=== PATIENT | female | born 1940 | race Caucasian/White ===

== ENCOUNTER 2016-08-30 10:57 | Emergency (ER) | payer MEDICARE, BC ==
[~2016-08-30 10:57] MED LIST: ADVAIR 250/28 DISKUS IH; ALBUTEROL0.09 MG/A4 IH; BIOTENE ORAL44.3 ML MM; BYSTOLIC5 MG PO; CLINDAMYCIN300 MG PO; COZAAR50 MG PO; FOLIC ACID1 MG PO; IRON325 M1 PO; LEVAQUIN 5500 MG/TA1 PO; LOTRISONE 0.05%1 CRE TP; MAGNESIUM200 MG PO; MASON NATURAL2000 IU PO; METHOTREXATE25 MG/M2 IJ; NATURE'S BLEN2000 IU PO; NEXIUM 40MG40 MG PO; NORCO 325 MG-7.1 TAB PO; OCUVITE1 TA1 PO; PREDNISONE 5MG5 MG PO; PRINIVIL5 MG PO; RECLAST5 MG/100 M IV; SINGULAIR10 MG PO; SYNTHROID0.175 MG PO; TESSALON PERLE200 MG PO; TRAZODONE50 MG PO; TUSSIONEX PENNKI5 ML PO; TYLENOL 500MG500 MG PO; ULTRAM50 MG PO; VITAMIN C500 MG PO; XARELTO10 MG PO; XOPENEX HF0.045 MG/A IH; [UNRECOGNIZED DRUG - OTHER] DE
[2016-08-30] MEDS ORDERED: MAGNESIUM OXID200 MG PO (11:13)
[2016-08-30] MEDS ORDERED: LOPRESSOR 550 MG/TAB PO (11:14)
[2016-08-30] MEDS ORDERED: COLACE100 M1 PO (12:05)
[2016-08-30 12:10] VITALS: BP 160/67
== END 2016-08-30 12:09 | disposition home or self-care (01) ==
LOC: ED 10:57
DX: K59.00 Constipation, unspecified (principal)

== ENCOUNTER → 2016-09-13 | Outpatient (CLI) | payer MEDICARE, BC ==
[~2016-09-13] MED LIST changes: +COLACE100 M1 PO; +LOPRESSOR 550 MG/TAB PO; +MAGNESIUM OXID200 MG PO
[2016-09-13 10:22] VITALS: BP 159/81
== END ==
LOC: AMSURD 10:15
DX: R00.1 Bradycardia, unspecified (principal)

== ENCOUNTER → 2017-01-04 | Outpatient (CLI) | payer MEDICARE, BC ==
[2016-09-13 10:22] VITALS: BP 159/81
== END ==
LOC: LAB 15:15
DX: S81.802A Unspecified open wound, left lower leg, initial encounter (principal); A49.01 Methicillin susceptible Staphylococcus aureus infection, unspecified site

== ENCOUNTER → 2017-11-02 | Outpatient (CLI) | payer MEDICARE, BC ==
[2016-09-13 10:22] VITALS: BP 159/81
== END ==
LOC: MAMMO 09:59
DX: Z12.31 Encounter for screening mammogram for malignant neoplasm of breast (principal)

== ENCOUNTER → 2017-12-13 | Outpatient (CLI) | payer MEDICARE, BC ==
[2016-09-13 10:22] VITALS: BP 159/81
== END ==
LOC: RAD 10:44 → MAMMO 10:45 → RAD 10:45
DX: M81.0 Age-related osteoporosis without current pathological fracture (principal)

== ENCOUNTER → 2018-10-05 | Outpatient (CLI) | payer MEDICARE, BC ==
[2016-09-13 10:22] VITALS: BP 159/81
== END ==
LOC: RAD 08:02
DX: M79.661 Pain in right lower leg (principal)

== ENCOUNTER → 2019-05-16 | Outpatient (CLI) | payer MEDICARE, BC ==
[2016-09-13 10:22] VITALS: BP 159/81
== END ==
LOC: MAMMO 11:30
DX: Z12.31 Encounter for screening mammogram for malignant neoplasm of breast (principal)

== ENCOUNTER → 2019-05-29 | Outpatient (CLI) | payer MEDICARE, BC ==
[2016-09-13 10:22] VITALS: BP 159/81
[2019-05-29 12:49] LABS: HEMATOCRIT 41.5 % (37.0-47.0); HEMOGLOBIN 13.7 g/dL (12.5-16.0); MEAN CELL VOLUME 96 fl (78-100); MEAN CORPUSCULAR HEMOGLOBIN 32 pg (27-31); MEAN CORPUSCULAR HGB CONC 33 g/dL (33-37); MEAN PLATELET VOLUME 9.2 fl (7.4-10.4); PLATELET COUNT 231 K/mm3 (130-400); RED BLOOD COUNT 4.33 M/mm3 (4.10-5.30); RED CELL DISTRIBUTION WIDTH 15.6 % (11.5-14.5); WHITE BLOOD COUNT 5.4 K/mm3 (4.8-10.8)
[2019-05-29 12:56] LABS: POTASSIUM 4.3 mmol/L (3.5-5.1)
[2019-05-29 12:57] LABS: CALCIUM 9.5 mg/dL (8.3-10.5)
[2019-05-29 12:59] LABS: TOTAL PROTEIN 7.5 g/dL (6.2-8.1)
[2019-05-29 13:01] LABS: TOTAL BILIRUBIN 0.6 mg/dL (0.2-1.2)
[2019-05-29 13:16] LABS: LYMPHOCYTE 30 % (20-51); NEUTROPHILS 54 % (42-75)
[2019-05-29 13:17] LABS: MONOCYTE 12 % (3-10)
[2019-05-29 13:54] LABS: ERYTHROCYTE SEDIMENTATION RATE 14 mm/hr (0-30)
== END ==
LOC: RAD 12:05
PROVIDERS: Internal Medicine
DX: Z12.11 Encounter for screening for malignant neoplasm of colon (principal); M17.12 Unilateral primary osteoarthritis, left knee; I10 Essential (primary) hypertension; D64.9 Anemia, unspecified; E03.9 Hypothyroidism, unspecified; M81.0 Age-related osteoporosis without current pathological fracture; M06.9 Rheumatoid arthritis, unspecified

== ENCOUNTER → 2019-06-21 | Outpatient (CLI) | payer MEDICARE, BC ==
[2016-09-13 10:22] VITALS: BP 159/81
== END ==
LOC: LAB 14:15
DX: Z12.11 Encounter for screening for malignant neoplasm of colon (principal); M06.9 Rheumatoid arthritis, unspecified; I10 Essential (primary) hypertension; E03.9 Hypothyroidism, unspecified

== ENCOUNTER → 2019-10-16 | Outpatient (CLI) | payer MEDICARE, BC ==
[2016-09-13 10:22] VITALS: BP 159/81
[2019-10-16 10:26] LABS: ALBUMIN 3.6 g/dL (3.4-4.8)
[2019-10-16 10:27] LABS: CALCIUM 9.4 mg/dL (8.3-10.5)
[2019-10-16 10:28] LABS: TOTAL PROTEIN 6.5 g/dL (6.2-8.1)
[2019-10-16 10:30] LABS: TOTAL BILIRUBIN 0.5 mg/dL (0.2-1.2)
[2019-10-16 11:27] LABS: HEMATOCRIT 43.3 % (37.0-47.0); HEMOGLOBIN 13.9 g/dL (12.5-16.0); MEAN CELL VOLUME 98 fl (78-100); MEAN CORPUSCULAR HEMOGLOBIN 31 pg (27-31); MEAN CORPUSCULAR HGB CONC 32 g/dL (33-37); MEAN PLATELET VOLUME 9.6 fl (7.4-10.4); PLATELET COUNT 249 K/mm3 (130-400); RED BLOOD COUNT 4.44 M/mm3 (4.10-5.30); RED CELL DISTRIBUTION WIDTH 15.3 % (11.5-14.5); WHITE BLOOD COUNT 11.8 K/mm3 (4.8-10.8)
[2019-10-16 12:11] LABS: LYMPHOCYTE 5 % (20-51); MONOCYTE 4 % (3-10); NEUTROPHILS 90 % (42-75)
[2019-10-16 12:12] LABS: ERYTHROCYTE SEDIMENTATION RATE 14 mm/hr (0-30)
== END ==
LOC: LAB 10:04
PROVIDERS: Internal Medicine
DX: R05 Cough (principal); R06.02 Shortness of breath; Z98.890 Other specified postprocedural states

== ENCOUNTER 2020-12-22 13:47 | Outpatient (RCR) | payer MEDICARE, BC ==
[2016-09-13 10:22] VITALS: BP 159/81
== END 2021-03-22 ==
LOC: PT
DX: M70.61 Trochanteric bursitis, right hip (principal)

== ENCOUNTER → 2021-02-16 | Outpatient (CLI) | payer MEDICARE, BC ==
[2021-02-16 15:34] LABS: ALBUMIN 3.7 g/dL (3.4-4.8); POTASSIUM 4.5 mmol/L (3.5-5.1)
[2021-02-16 15:35] LABS: CALCIUM 9.4 mg/dL (8.3-10.5)
[2021-02-16 15:37] LABS: TOTAL PROTEIN 6.6 g/dL (6.2-8.1)
[2021-02-16 15:38] LABS: TOTAL BILIRUBIN 0.5 mg/dL (0.2-1.2)
[2021-02-16 16:51] LABS: ERYTHROCYTE SEDIMENTATION RATE 20 mm/hr (0-30)
[2021-02-16 16:53] LABS: BASO # 0.06 (0.02-0.10); EOS # 0.09 (0.04-0.40); EOS % 1.2 % (1.0-5.0); HEMATOCRIT 40.3 % (37.0-47.0); HEMOGLOBIN 13.5 g/dL (12.5-16.0); LYMPH# 1.41 (1.50-4.00); MEAN CELL VOLUME 100 fl (78-100); MEAN CORPUSCULAR HEMOGLOBIN 34 pg (27-31); MEAN CORPUSCULAR HGB CONC 34 g/dL (33-37); MEAN PLATELET VOLUME 9.2 fl (7.4-10.4); MONO # 0.98 (0.20-0.80); NEU # 4.83 (1.40-6.50); PLATELET COUNT 264 K/mm3 (130-400); RED BLOOD COUNT 4.03 M/mm3 (4.10-5.30); RED CELL DISTRIBUTION WIDTH 14.5 % (11.5-14.5); WHITE BLOOD COUNT 7.4 K/mm3 (4.8-10.8)
[2021-02-17 13:44] LABS: ANA SCREEN with REFLEX Negative (Negative)
== END ==
LOC: LAB 14:54
PROVIDERS: Nurse Practitioner
DX: R22.31 Localized swelling, mass and lump, right upper limb (principal)

== ENCOUNTER → 2021-04-22 | Outpatient (CLI) | payer MEDICARE, BC ==
[2021-04-22 16:01] LABS: ALBUMIN 3.6 g/dL (3.4-4.8); POTASSIUM 4.8 mmol/L (3.5-5.1)
[2021-04-22 16:02] LABS: CALCIUM 9.4 mg/dL (8.3-10.5)
[2021-04-22 16:04] LABS: TOTAL PROTEIN 6.1 g/dL (6.2-8.1)
[2021-04-22 16:06] LABS: TOTAL BILIRUBIN 0.5 mg/dL (0.2-1.2)
== END ==
LOC: LAB 15:36
PROVIDERS: Internal Medicine
DX: R73.03 Prediabetes (principal)

== ENCOUNTER → 2021-05-27 | Outpatient (CLI) | payer MEDICARE, BC | LOC: MAMMO 10:00 | DX: M81.0 Age-related osteoporosis without current pathological fracture (principal); Z12.31 Encounter for screening mammogram for malignant neoplasm of breast ==

== ENCOUNTER → 2021-05-27 | Outpatient (CLI) | payer MEDICARE, BC | LOC: RAD 10:06 | DX: Z13.820 Encounter for screening for osteoporosis (principal); M81.0 Age-related osteoporosis without current pathological fracture ==

== ENCOUNTER → 2021-06-18 | Outpatient (CLI) | payer MEDICARE, BC ==
[2021-06-18 12:44] LABS: BASO # 0.04 K/mm3 (0.02-0.10); EOS # 0.05 K/mm3 (0.04-0.40); EOS % 0.5 % (1.0-5.0); HEMATOCRIT 43.4 % (37.0-47.0); LYMPH# 0.97 K/mm3 (1.50-4.00); MEAN CELL VOLUME 103 fl (78-100); MEAN CORPUSCULAR HEMOGLOBIN 33 pg (27-31); MEAN CORPUSCULAR HGB CONC 32 g/dL (33-37); MEAN PLATELET VOLUME 8.8 fl (7.4-10.4); MONO # 0.73 K/mm3 (0.20-0.80); NEU # 8.87 K/mm3 (1.40-6.50); PLATELET COUNT 194 K/mm3 (130-400); RED BLOOD COUNT 4.21 M/mm3 (4.10-5.30); RED CELL DISTRIBUTION WIDTH 15.4 % (11.5-14.5); WHITE BLOOD COUNT 10.7 K/mm3 (4.8-10.8)
[2021-06-18 12:53] LABS: ALBUMIN 3.9 g/dL (3.4-4.8)
[2021-06-18 12:56] LABS: TOTAL PROTEIN 6.5 g/dL (6.2-8.1)
[2021-06-18 12:58] LABS: TOTAL BILIRUBIN 0.8 mg/dL (0.2-1.2)
== END ==
LOC: LAB 12:28
PROVIDERS: Internal Medicine
DX: M47.814 Spondylosis without myelopathy or radiculopathy, thoracic region (principal); M43.17 Spondylolisthesis, lumbosacral region; M51.36 Other intervertebral disc degeneration, lumbar region; M41.86 Other forms of scoliosis, lumbar region; R07.9 Chest pain, unspecified; Z98.890 Other specified postprocedural states; M81.0 Age-related osteoporosis without current pathological fracture; E03.4 Atrophy of thyroid (acquired)

== ENCOUNTER → 2021-06-19 | Outpatient (CLI) | payer MEDICARE, BC | LOC: RAD 12:39 | DX: J98.11 Atelectasis (principal); R79.1 Abnormal coagulation profile; K80.20 Calculus of gallbladder without cholecystitis without obstruction | CPT/HCPCS: Q9967 ==

== ENCOUNTER → 2021-07-03 | Outpatient (CLI) | payer MEDICARE, BC | END | disposition still patient (30) | LOC: CARDLAB 08:15 → CARDREHAB 10:46 | DX: R06.00 Dyspnea, unspecified (principal) | CPT/HCPCS: A9500 ==

== ENCOUNTER → 2021-08-20 | Outpatient (CLI) | payer MEDICARE, BC ==
[2021-08-20 10:35] LABS: BASO # 0.03 K/mm3 (0.02-0.10); EOS # 0.12 K/mm3 (0.04-0.40); EOS % 2.4 % (1.0-5.0); HEMATOCRIT 41.4 % (37.0-47.0); HEMOGLOBIN 13.2 g/dL (12.5-16.0); LYMPH# 1.22 K/mm3 (1.50-4.00); MEAN CELL VOLUME 105 fl (78-100); MEAN CORPUSCULAR HEMOGLOBIN 33 pg (27-31); MEAN CORPUSCULAR HGB CONC 32 g/dL (33-37); MEAN PLATELET VOLUME 9.3 fl (7.4-10.4); MONO # 0.78 K/mm3 (0.20-0.80); NEU # 2.79 K/mm3 (1.40-6.50); PLATELET COUNT 224 K/mm3 (130-400); RED BLOOD COUNT 3.95 M/mm3 (4.10-5.30); RED CELL DISTRIBUTION WIDTH 15.4 % (11.5-14.5)
== END ==
LOC: LAB 10:20
PROVIDERS: Family Medicine
DX: I87.2 Venous insufficiency (chronic) (peripheral) (principal); L03.119 Cellulitis of unspecified part of limb

== ENCOUNTER → 2021-09-01 | Outpatient (CLI) | payer MEDICARE, BC ==
[~2021-09-01] VITALS: Ht 167.6 cm; Wt 120.9 kg
[~2021-09-01] MED LIST changes: +ALDACTONE25 M1 PO; +AZELASTINE137 MCG/A1 NS; +DESYREL 100MG100 MG PO; +DILTIAZEM 24HR120 M2 PO; +FLUTICASONE-SA1 EAC4 IH; +LEVOTHYROXINE175 MCG PO; +METHOTREXA25 MG/1 ML IJ; +NATURAL IRON65 MG PO; +NATURE'S BLEND1 TA6 PO; +PROAIR HFA0.09 MG/AC IH; +SINGULAIR 110 MG/TAB PO; +TYLENOL 325MG325 MG PO
[2021-09-01 17:39] VITALS: BP 158/97
[2021-09-01 17:49] VITALS: BP 161/110
[2021-09-01 18:01] VITALS: BP 173/96
[2021-09-01 18:15] VITALS: BP 180/100
[2021-09-01 18:30] VITALS: BP 160/93
[2021-09-01 18:45] VITALS: BP 169/104
== END ==
LOC: LAB 15:45
DX: U07.1 COVID-19 (principal); E66.9 Obesity, unspecified; N18.9 Chronic kidney disease, unspecified; I25.10 Atherosclerotic heart disease of native coronary artery without angina pectoris
CPT/HCPCS: M0247; Q0247

== ENCOUNTER → 2021-10-09 | Outpatient (CLI) | payer MEDICARE, BC ==
[2021-10-09 12:41] LABS: POTASSIUM 4.5 mmol/L (3.5-5.1)
[2021-10-09 12:42] LABS: CALCIUM 9.6 mg/dL (8.3-10.5)
== END ==
LOC: LAB 11:56
PROVIDERS: Internal Medicine Pulmonary Disease
DX: R06.00 Dyspnea, unspecified (principal); R06.02 Shortness of breath

== ENCOUNTER 2023-04-12 11:48 | Emergency (ER) | payer MEDICARE, BC ==
[~2023-04-12] VITALS: Ht 167.6 cm; Wt 110.0 kg
[2023-04-12 12:11] LABS: BASO # 0.03 K/mm3 (0.02-0.10); EOS # 0.11 K/mm3 (0.04-0.40); EOS % 1.4 % (1.0-5.0); HEMATOCRIT 41.8 % (37.0-47.0); HEMOGLOBIN 13.6 g/dL (12.5-16.0); LYMPH# 1.59 K/mm3 (1.50-4.00); MEAN CELL VOLUME 101 fl (78-100); MEAN CORPUSCULAR HEMOGLOBIN 33 pg (27-31); MEAN CORPUSCULAR HGB CONC 33 g/dL (33-37); MEAN PLATELET VOLUME 8.6 fl (7.4-10.4); MONO # 0.87 K/mm3 (0.20-0.80); NEU # 5.22 K/mm3 (1.40-6.50); PLATELET COUNT 247 K/mm3 (130-400); RED BLOOD COUNT 4.15 M/mm3 (4.10-5.30); RED CELL DISTRIBUTION WIDTH 15.1 % (11.5-14.5); WHITE BLOOD COUNT 7.9 K/mm3 (4.8-10.8)
[2023-04-12 12:20] LABS: ALBUMIN 3.9 g/dL (3.4-4.8); POTASSIUM 3.9 mmol/L (3.5-5.1); SODIUM 139 mmol/L (136-145)
[2023-04-12 12:21] LABS: CALCIUM 9.4 mg/dL (8.3-10.5)
[2023-04-12 12:22] LABS: GLUCOSE 81 mg/dL (65-105); TOTAL PROTEIN 7.3 g/dL (6.2-8.1)
[2023-04-12 12:23] LABS: CARBON DIOXIDE 23 mmol/L (23-31)
[2023-04-12 12:24] LABS: TOTAL BILIRUBIN 0.4 mg/dL (0.2-1.2)
[2023-04-12 12:28] LABS: AST-SGOT 25 U/L (5-34)
[2023-04-12 12:29] LABS: ALT/SGPT 23 U/L (0-55)
[2023-04-12 12:53] LABS: TROPONIN-I < 0.030 ng/mL (<0.030)
[2023-04-12 13:45] VITALS: BP 164/84
== END 2023-04-12 13:46 | disposition short-term general hospital (02) ==
LOC: ED 11:48
PROVIDERS: Physician Assistant
DX: R07.89 Other chest pain (principal); R79.89 Other specified abnormal findings of blood chemistry

== ENCOUNTER → 2023-06-30 | Outpatient (CLI) | payer MEDICARE, BC | LOC: RAD 10:30 → MAMMO 10:30 → RAD 10:38 | DX: M81.0 Age-related osteoporosis without current pathological fracture (principal) ==

== ENCOUNTER → 2023-08-18 | Outpatient (CLI) | payer MEDICARE, BC ==
[2023-08-18 11:29] LABS: BASO # 0.03 K/mm3 (0.02-0.10); EOS # 0.13 K/mm3 (0.04-0.40); EOS % 1.4 % (1.0-5.0); HEMATOCRIT 39.5 % (37.0-47.0); HEMOGLOBIN 12.8 g/dL (12.5-16.0); LYMPH# 0.93 K/mm3 (1.50-4.00); MEAN CELL VOLUME 102 fl (78-100); MEAN CORPUSCULAR HEMOGLOBIN 33 pg (27-31); MEAN CORPUSCULAR HGB CONC 32 g/dL (33-37); MEAN PLATELET VOLUME 8.2 fl (7.4-10.4); MONO # 0.67 K/mm3 (0.20-0.80); PLATELET COUNT 290 K/mm3 (130-400); RED BLOOD COUNT 3.89 M/mm3 (4.10-5.30); RED CELL DISTRIBUTION WIDTH 15.4 % (11.5-14.5)
[2023-08-18 11:44] LABS: CALCIUM 9.8 mg/dL (8.3-10.5)
[2023-08-18 11:45] LABS: TOTAL PROTEIN 7.3 g/dL (6.2-8.1)
[2023-08-18 11:47] LABS: TOTAL BILIRUBIN 0.5 mg/dL (0.2-1.2)
[2023-08-18 11:52] LABS: MAGNESIUM 2.18 mg/dL (1.60-2.60)
[2023-08-21 06:08] LABS: ANTI-CYC CITRULLINATED PEPT AB 189 units (0-19)
== END ==
LOC: LAB 11:01
PROVIDERS: Internal Medicine
DX: M06.9 Rheumatoid arthritis, unspecified (principal); M81.0 Age-related osteoporosis without current pathological fracture; E03.4 Atrophy of thyroid (acquired); I10 Essential (primary) hypertension

== ENCOUNTER 2023-09-28 15:10 | Inpatient (IN) | payer MEDICARE, BC ==
[~2023-09-28] VITALS: Ht 198.1 cm; Wt 111.1 kg
[2023-09-28 16:01] VITALS: BP 166/109
[2023-09-28] MEDS ORDERED: CYCLOBENZ5 MG PO (16:40)
[2023-09-28] MEDS ORDERED: ASPERCREME1 EACH TP (16:44)
[2023-09-28] MEDS ORDERED: ROXICODONE 55 MG/TAB PO (16:46)
[2023-09-28] MEDS ORDERED: MIRALAX17 GM PO (16:47)
[2023-09-28] MEDS ORDERED: RT ADVAIR HFA 2312 G IH (16:49)
[2023-09-28] MEDS ORDERED: CETIRIZINE HCL10 MG PO (16:51)
[2023-09-28] MEDS ORDERED: BENADRYL PO (16:54)
[2023-09-28] MEDS ORDERED: ISOSORBIDE30 MG PO (16:57)
[2023-09-28] MEDS ORDERED: NIZORAL CREAM15 GM TP (17:01)
[2023-09-28] MEDS ORDERED: ORENCIA50 MG/0.4 (17:06)
[2023-09-28] MEDS ORDERED: PANTOPRAZOLE SO40 MG PO (17:09)
[2023-09-28] MEDS ORDERED: ALDACTONE50 M1 PO (17:12)
[2023-09-28] MEDS ORDERED: VITAMIN D350 MCG PO (17:16)
[2023-09-28] MEDS ORDERED: [UNRECOGNIZED DRUG - OTHER] TP (17:20)
[2023-09-28 17:33] LABS: URINE APPEARANCE CLOUDY (CLEAR); URINE COLOR YELLOW (YELLOW); URINE PROTEIN(semi-quant) 2+ (NEGATIVE)
[2023-09-28 17:34] LABS: URINE BILIRUBIN NEGATIVE (NEGATIVE); URINE BLOOD 2+ (NEGATIVE); URINE GLUCOSE NEGATIVE (NEGATIVE); URINE KETONE TRACE (NEGATIVE); URINE LEUKOCYTE ESTERASE 3+ (NEGATIVE); URINE NITRATE POSITIVE (NEGATIVE); URINE WBC >50 /hpf (0-3)
[2023-09-28 17:42] LABS: ALBUMIN 3.8 g/dL (3.4-4.8)
[2023-09-28 17:44] LABS: CALCIUM 10.1 mg/dL (8.3-10.5)
[2023-09-28 17:45] LABS: TOTAL PROTEIN 7.8 g/dL (6.2-8.1)
[2023-09-28 17:47] LABS: TOTAL BILIRUBIN 0.8 mg/dL (0.2-1.2)
[2023-09-28 18:09] LABS: BASO # 0.02 K/mm3 (0.02-0.10); EOS # 0.11 K/mm3 (0.04-0.40); EOS % 0.8 % (1.0-5.0); HEMATOCRIT 39.8 % (37.0-47.0); LYMPH# 1.34 K/mm3 (1.50-4.00); MEAN CELL VOLUME 98 fl (78-100); MEAN CORPUSCULAR HEMOGLOBIN 32 pg (27-31); MEAN CORPUSCULAR HGB CONC 33 g/dL (33-37); MEAN PLATELET VOLUME 9.5 fl (7.4-10.4); MONO # 1.17 K/mm3 (0.20-0.80); NEU # 10.38 K/mm3 (1.40-6.50); PLATELET COUNT 289 K/mm3 (130-400); RED BLOOD COUNT 4.05 M/mm3 (4.10-5.30); RED CELL DISTRIBUTION WIDTH 15.3 % (11.5-14.5); WHITE BLOOD COUNT 13.1 K/mm3 (4.8-10.8)
[2023-09-28] MEDS ORDERED: oxyCODONE 5 MG TAB PO PRN (18:30)
[2023-09-28] MEDS ORDERED: Albuterol 90 MCG/PUFF MDI IH PRN (19:00)
[2023-09-28] MEDS ORDERED: diphenhydrAMINE 25 MG CAP PO PRN (19:00)
[2023-09-28] MEDS ORDERED: Spironolactone 25 MG TAB PO SCH (19:00)
[2023-09-28] MEDS ORDERED: Acetaminophen 325 MG TAB PO PRN (19:15)
[2023-09-28] MEDS ORDERED: Montelukast 10 MG TAB PO SCH (21:00)
[2023-09-28] MEDS ORDERED: traZODone 50 MG TAB PO SCH (21:00)
[2023-09-28] MEDS ORDERED: Cyclobenzaprine 10 MG TAB PO SCH (21:00)
[2023-09-28] MEDS ORDERED: UREA TOP SCH (21:00)
[2023-09-28] MEDS ORDERED: Formoterol 20 MCG,Budesonide 0.5 MG IH SCH (21:00)
[2023-09-29 05:44] VITALS: BP 162/85
[2023-09-29] MEDS ORDERED: Nitrofurantoin (Mono/Macro) 100 MG CAPSULE PO SCH (08:48)
[2023-09-29] MEDS ORDERED: dilTIAZem CD 120 MG CAP PO SCH (09:00)
[2023-09-29] MEDS ORDERED: Multivitamin TAB PO SCH (09:00)
[2023-09-29] MEDS ORDERED: Spironolactone 25 MG TAB PO SCH (09:00)
[2023-09-29] MEDS ORDERED: Ferrous Sulfate 325 MG TAB PO SCH (09:00)
[2023-09-29] MEDS ORDERED: Isosorbide Mononitrate ER (24-HR) 30 MG TAB PO SCH (09:00)
[2023-09-29] MEDS ORDERED: Polyethylene Glycol 3350 Powder 17 GM PACKET PO SCH (09:00)
[2023-09-29] MEDS ORDERED: Lidocaine 4% Topical Patch TP SCH (09:00)
[2023-09-29] MEDS ORDERED: Folic Acid 1 MG TAB PO SCH (09:00)
[2023-09-29] MEDS ORDERED: Magnesium Oxide 400 MG TAB PO SCH (09:00)
[2023-09-29] MEDS ORDERED: Cetirizine 10 MG TAB PO SCH (09:00)
[2023-09-29 15:42] VITALS: BP 126/77
[2023-09-29] MEDS ORDERED: Miconazole 2% Topical Powder BOTTLE TP SCH (15:42)
[2023-09-30 05:42] VITALS: BP 164/78
[2023-09-30] MEDS ORDERED: Acetaminophen 325 MG TAB PO PRN (18:00)
[2023-09-30 18:22] VITALS: BP 93/59
[2023-10-01 05:56] VITALS: BP 127/73
[2023-10-01 17:49] VITALS: BP 136/83
[2023-10-02 05:47] VITALS: BP 124/76
[2023-10-02 17:03] VITALS: BP 141/81
[2023-10-03 06:10] VITALS: BP 145/78
[2023-10-03 09:36] VITALS: BP 149/82
[2023-10-03 17:12] VITALS: BP 115/48
[2023-10-03 17:14] VITALS: BP 115/76
[2023-10-04 05:11] VITALS: BP 153/82
[2023-10-04 16:22] VITALS: BP 116/72
[2023-10-05 05:37] VITALS: BP 129/75
[2023-10-05 18:15] VITALS: BP 128/79
[2023-10-06 05:43] VITALS: BP 136/79
[2023-10-06 17:30] VITALS: BP 138/83
[2023-10-07 05:28] VITALS: BP 141/73
[2023-10-07 17:08] VITALS: BP 127/83
[2023-10-08 05:56] VITALS: BP 117/72
[2023-10-08 18:27] VITALS: BP 116/67
[2023-10-09 05:26] VITALS: BP 148/73
[2023-10-09 15:48] VITALS: BP 136/82
[2023-10-10 06:01] VITALS: BP 146/85; BP_SYST 85
[2023-10-10 17:40] VITALS: BP 151/84
[2023-10-11 06:05] VITALS: BP 139/80
[2023-10-11 16:56] VITALS: BP 136/81
[2023-10-12 06:07] VITALS: BP 136/97
[2023-10-12 06:07] LABS: BASO # 0.04 K/mm3 (0.02-0.10); EOS # 0.13 K/mm3 (0.04-0.40); EOS % 1.9 % (1.0-5.0); HEMATOCRIT 33.6 % (37.0-47.0); HEMOGLOBIN 10.9 g/dL (12.5-16.0); LYMPH# 1.47 K/mm3 (1.50-4.00); MEAN CELL VOLUME 100 fl (78-100); MEAN CORPUSCULAR HEMOGLOBIN 32 pg (27-31); MEAN CORPUSCULAR HGB CONC 32 g/dL (33-37); MEAN PLATELET VOLUME 7.8 fl (7.4-10.4); MONO # 0.61 K/mm3 (0.20-0.80); NEU # 4.52 K/mm3 (1.40-6.50); PLATELET COUNT 297 K/mm3 (130-400); RED BLOOD COUNT 3.36 M/mm3 (4.10-5.30); RED CELL DISTRIBUTION WIDTH 15.4 % (11.5-14.5); WHITE BLOOD COUNT 6.8 K/mm3 (4.8-10.8)
[2023-10-12 06:19] LABS: ALBUMIN 3.2 g/dL (3.4-4.8)
[2023-10-12 06:21] LABS: CALCIUM 9.1 mg/dL (8.3-10.5)
[2023-10-12 06:22] LABS: TOTAL PROTEIN 6.2 g/dL (6.2-8.1)
[2023-10-12 06:24] LABS: TOTAL BILIRUBIN 0.3 mg/dL (0.2-1.2)
[2023-10-12] MEDS ORDERED: ROXICODONE 55 MG/TAB PO (10:57)
== END 2023-10-12 11:17 | disposition home health service (06) | DRG 560 ==
LOC: MED/SURG 15:10
PROVIDERS: Family Medicine; ADMIT Nurse Practitioner
DX: S22.20XD Unspecified fracture of sternum, subsequent encounter for fracture with routine healing (principal); N39.0 Urinary tract infection, site not specified; N18.9 Chronic kidney disease, unspecified; I12.9 Hypertensive chronic kidney disease with stage 1 through stage 4 chronic kidney disease, or unspecified chronic kidney disease; M79.7 Fibromyalgia; E03.9 Hypothyroidism, unspecified; J44.9 Chronic obstructive pulmonary disease, unspecified; K21.9 Gastro-esophageal reflux disease without esophagitis; M19.90 Unspecified osteoarthritis, unspecified site; E78.2 Mixed hyperlipidemia; M06.9 Rheumatoid arthritis, unspecified; G47.30 Sleep apnea, unspecified; J30.9 Allergic rhinitis, unspecified; W18.30XD Fall on same level, unspecified, subsequent encounter; Z79.891 Long term (current) use of opiate analgesic; Z79.890 Hormone replacement therapy; Z96.651 Presence of right artificial knee joint; Z87.891 Personal history of nicotine dependence; Z88.0 Allergy status to penicillin; Z88.2 Allergy status to sulfonamides; Z88.8 Allergy status to other drugs, medicaments and biological substances
CPT/HCPCS: J8610

== ENCOUNTER → 2024-01-23 | Outpatient (CLI) | payer MEDICARE, BC ==
[~2024-01-23] MED LIST changes: +ALDACTONE50 M1 PO; +ASPERCREME1 EACH TP; +BENADRYL PO; +CETIRIZINE HCL10 MG PO; +CYCLOBENZ5 MG PO; +ISOSORBIDE30 MG PO; +MIRALAX17 GM PO; +NIZORAL CREAM15 GM TP; +ORENCIA50 MG/0.4; +PANTOPRAZOLE SO40 MG PO; +ROXICODONE 55 MG/TAB PO; +RT ADVAIR HFA 2312 G IH; +VITAMIN D350 MCG PO; +[UNRECOGNIZED DRUG - OTHER] TP
[2024-01-23 10:37] LABS: ALBUMIN 3.7 g/dL (3.4-4.8)
[2024-01-23 10:39] LABS: BASO # 0.03 K/mm3 (0.02-0.10); CALCIUM 9.3 mg/dL (8.3-10.5); EOS # 0.31 K/mm3 (0.04-0.40); EOS % 4.5 % (1.0-5.0); HEMATOCRIT 39.7 % (37.0-47.0); HEMOGLOBIN 12.7 g/dL (12.5-16.0); LYMPH# 1.27 K/mm3 (1.50-4.00); MEAN CELL VOLUME 102 fl (78-100); MEAN CORPUSCULAR HEMOGLOBIN 33 pg (27-31); MEAN CORPUSCULAR HGB CONC 32 g/dL (33-37); MEAN PLATELET VOLUME 8.4 fl (7.4-10.4); NEU # 4.65 K/mm3 (1.40-6.50); PLATELET COUNT 257 K/mm3 (130-400); RED BLOOD COUNT 3.91 M/mm3 (4.10-5.30); RED CELL DISTRIBUTION WIDTH 15.9 % (11.5-14.5); WHITE BLOOD COUNT 6.9 K/mm3 (4.8-10.8)
[2024-01-23 10:40] LABS: TOTAL PROTEIN 6.7 g/dL (6.2-8.1)
[2024-01-23 10:42] LABS: TOTAL BILIRUBIN 0.6 mg/dL (0.2-1.2)
[2024-01-23 10:47] LABS: MAGNESIUM 1.98 mg/dL (1.60-2.60)
[2024-01-23 11:25] LABS: URINE APPEARANCE CLOUDY (CLEAR); URINE BILIRUBIN NEGATIVE (NEGATIVE); URINE BLOOD NEGATIVE (NEGATIVE); URINE COLOR YELLOW (YELLOW); URINE GLUCOSE NEGATIVE (NEGATIVE); URINE KETONE NEGATIVE (NEGATIVE); URINE LEUKOCYTE ESTERASE 2+ (NEGATIVE); URINE NITRATE POSITIVE (NEGATIVE); URINE PROTEIN(semi-quant) NEGATIVE (NEGATIVE)
[2024-01-23 11:26] LABS: URINE WBC >50 /hpf (0-3)
== END ==
LOC: LAB 10:12
PROVIDERS: Internal Medicine
DX: Z12.11 Encounter for screening for malignant neoplasm of colon (principal); E03.4 Atrophy of thyroid (acquired); I12.9 Hypertensive chronic kidney disease with stage 1 through stage 4 chronic kidney disease, or unspecified chronic kidney disease; N18.30 Chronic kidney disease, stage 3 unspecified; M06.9 Rheumatoid arthritis, unspecified; K90.9 Intestinal malabsorption, unspecified; E78.2 Mixed hyperlipidemia; R73.9 Hyperglycemia, unspecified

== ENCOUNTER → 2024-01-27 | Outpatient (CLI) | payer MEDICARE, BC | LOC: RAD 11:23 | DX: M25.551 Pain in right hip (principal) ==

== ENCOUNTER → 2024-02-13 | Outpatient (CLI) | payer MEDICARE, BC | LOC: MAMMO 14:30 | DX: Z12.31 Encounter for screening mammogram for malignant neoplasm of breast (principal) ==

== ENCOUNTER → 2024-04-13 | Outpatient (CLI) | payer MEDICARE, BC | LOC: RAD 11:59 | DX: R06.00 Dyspnea, unspecified (principal) ==

== ENCOUNTER → 2024-07-12 | Outpatient (CLI) | payer MEDICARE, BC ==
[2024-07-12 15:23] LABS: BASO # 0.04 K/mm3 (0.02-0.10); EOS # 0.27 K/mm3 (0.04-0.40); EOS % 2.9 % (1.0-5.0); HEMATOCRIT 40.1 % (37.0-47.0); HEMOGLOBIN 12.9 g/dL (12.5-16.0); MEAN CELL VOLUME 101 fl (78-100); MEAN CORPUSCULAR HEMOGLOBIN 33 pg (27-31); MEAN CORPUSCULAR HGB CONC 32 g/dL (33-37); MEAN PLATELET VOLUME 8.4 fl (7.4-10.4); MONO # 0.85 K/mm3 (0.20-0.80); NEU # 6.73 K/mm3 (1.40-6.50); PLATELET COUNT 272 K/mm3 (130-400); RED BLOOD COUNT 3.97 M/mm3 (4.10-5.30); RED CELL DISTRIBUTION WIDTH 15.7 % (11.5-14.5); WHITE BLOOD COUNT 9.2 K/mm3 (4.8-10.8)
[2024-07-12 15:30] LABS: ALBUMIN 3.9 g/dL (3.4-4.8)
[2024-07-12 15:31] LABS: CALCIUM 9.7 mg/dL (8.3-10.5)
[2024-07-12 15:33] LABS: TOTAL PROTEIN 7.1 g/dL (6.2-8.1)
[2024-07-12 15:34] LABS: TOTAL BILIRUBIN 0.4 mg/dL (0.2-1.2)
[2024-07-12 15:39] LABS: MAGNESIUM 2.15 mg/dL (1.60-2.60)
== END ==
LOC: LAB 15:03
PROVIDERS: Internal Medicine
DX: E03.4 Atrophy of thyroid (acquired) (principal); I10 Essential (primary) hypertension; K90.9 Intestinal malabsorption, unspecified

== ENCOUNTER 2024-08-10 14:53 | Emergency (ER) | payer MEDICARE, BC ==
[~2024-08-10] VITALS: Ht 167.6 cm; Wt 103.6 kg
[2024-08-10] MEDS ORDERED: DULOXETINE30 MG PO (15:01)
[2024-08-10] MEDS ORDERED: ESCITALOPRAM5 MG PO (15:01)
[2024-08-10 16:23] LABS: BASO # 0.02 K/mm3 (0.02-0.10); EOS # 0.06 K/mm3 (0.04-0.40); EOS % 0.6 % (1.0-5.0); HEMOGLOBIN 13.8 g/dL (12.5-16.0); LYMPH# 1.26 K/mm3 (1.50-4.00); MEAN CELL VOLUME 99 fl (78-100); MEAN CORPUSCULAR HEMOGLOBIN 33 pg (27-31); MEAN CORPUSCULAR HGB CONC 33 g/dL (33-37); MEAN PLATELET VOLUME 8.5 fl (7.4-10.4); NEU # 8.54 K/mm3 (1.40-6.50); PLATELET COUNT 264 K/mm3 (130-400); RED BLOOD COUNT 4.25 M/mm3 (4.10-5.30); RED CELL DISTRIBUTION WIDTH 14.9 % (11.5-14.5); WHITE BLOOD COUNT 10.3 K/mm3 (4.8-10.8)
[2024-08-10 16:54] LABS: ALBUMIN 4.1 g/dL (3.4-4.8)
[2024-08-10 16:57] LABS: TOTAL PROTEIN 7.5 g/dL (6.2-8.1)
[2024-08-10 16:59] LABS: TOTAL BILIRUBIN 0.8 mg/dL (0.2-1.2)
[2024-08-10] MEDS ORDERED: TIZANIDINE HYDRO4 MG PO (17:10)
[2024-08-10] MEDS ORDERED: tiZANidine 4 MG TABLET PO ONE (17:15)
[2024-08-10 17:38] VITALS: BP 163/92
== END 2024-08-10 17:30 | disposition home or self-care (01) ==
LOC: ED 14:53
PROVIDERS: Family Medicine
DX: M54.50 Low back pain, unspecified (principal); Z86.16 Personal history of COVID-19

== ENCOUNTER → 2024-09-21 | Outpatient (CLI) | payer MEDICARE, BC ==
[~2024-09-21] MED LIST changes: +DULOXETINE30 MG PO; +ESCITALOPRAM5 MG PO; +TIZANIDINE HYDRO4 MG PO
== END ==
LOC: RAD 13:30
DX: J18.1 Lobar pneumonia, unspecified organism (principal); J20.9 Acute bronchitis, unspecified

== ENCOUNTER → 2024-09-27 | Outpatient (CLI) | payer MEDICARE, BC ==
[2024-09-27 09:35] LABS: BASO # 0.03 K/mm3 (0.02-0.10); EOS # 0.19 K/mm3 (0.04-0.40); EOS % 1.8 % (1.0-5.0); HEMATOCRIT 37.2 % (37.0-47.0); HEMOGLOBIN 12.2 g/dL (12.5-16.0); LYMPH# 1.22 K/mm3 (1.50-4.00); MEAN CELL VOLUME 98 fl (78-100); MEAN CORPUSCULAR HEMOGLOBIN 32 pg (27-31); MEAN CORPUSCULAR HGB CONC 33 g/dL (33-37); MEAN PLATELET VOLUME 8.1 fl (7.4-10.4); MONO # 0.81 K/mm3 (0.20-0.80); PLATELET COUNT 449 K/mm3 (130-400); RED BLOOD COUNT 3.79 M/mm3 (4.10-5.30); RED CELL DISTRIBUTION WIDTH 15.7 % (11.5-14.5); WHITE BLOOD COUNT 10.8 K/mm3 (4.8-10.8)
[2024-09-27 09:40] LABS: ALBUMIN 3.3 g/dL (3.4-4.8)
[2024-09-27 09:41] LABS: CALCIUM 9.7 mg/dL (8.3-10.5)
[2024-09-27 09:42] LABS: TOTAL PROTEIN 7.7 g/dL (6.2-8.1)
[2024-09-27 09:44] LABS: TOTAL BILIRUBIN 0.4 mg/dL (0.2-1.2)
[2024-09-27 09:49] LABS: MAGNESIUM 2.04 mg/dL (1.60-2.60)
== END ==
LOC: LAB 08:59
PROVIDERS: Internal Medicine
DX: J18.9 Pneumonia, unspecified organism (principal)